=== PATIENT | male | born 1960 | race Caucasian/White ===

== ENCOUNTER 2017-04-14 17:42 | Emergency (ER) | payer OTHER ==
[2017-04-14 17:49] VITALS: BP 159/93; BMI 58.3
[2017-04-14] MEDS ORDERED: ASPIRIN ONE (18:39)
--- NOTE | 2017-04-14 18:44 | DR.CP ---
HPI - Time Seen Time seen: 18:00 - PCP Primary Care Physician: Jeff - HPI Comment HPI Comment: Pt c/o 2 week h/o left sided chest pain with nausea, diaphoresis, and SOB. Chest pain radiates to L shoulder and down his Left arm.A cardiac cath in 08/2016 revealed normal coronary arteries. He has been taking his BP meds in the evening and has been religiously taking his Percocet 10, 4 times daily. - Complaint Chief Complaint Doctor Comments: Chest pain Chief Complaint:: chest pain blurred vision headache Self Treatment fo Chief Complaint: none - Reviewed Nurses Notes Review: Yes - Source History Provided: Patient - Mode of Arrival Mode of Arrival: Ambulatory - Timing Onset of Chief Complaint: 04/07/17 Came on: Gradually Pain: Present Now - Duration Duration: Intermittent How lon Duration: Weeks - Location Location of Chest Pain: Left, Chest Chest Pain Radiation Location: Left Arm, Left Shoulder - Context Onset: At rest, With light exertion, With heavy exertion Cardiac Risk Factors: HTN, Other (morbid obesity) History of: Similar pain in the past, Angina Prehospital Care: None - Quality Quality: Squeezing, Pressure like - Severity Severity: Severe (10/10) - Modifying Factors Worsens: Exertion, Movement Impoves: Nothing, Rest - Associated Signs and Symptoms Associated Signs and Symptoms: Shortness of Breath, Diaphoresis, Nausea/Vomiting PMH - PMH Past Medical History: Yes Past Medical History: Anxiety, Diabetes, Dyslipidemia, Hypertension, Kidney Stones, Sleep Apnea Past Surgical History: Yes Surgical History: Ortho Surgery, Lithotripsy Past Surgical History Comment: bladder canver removal , knee surgery - Family History History of Family Medical Conditions: No (unsure) - Social History Does patient currently use any type of tobacco product: No Have you used tobacco products in the last 12 months: No Type of Tobacco Use: None Does any household member use tobacco: No Alcohol Use: None Do you use any recreational Drugs:: No Lives With: Family, Significant Other Lives Where: Home - infectious screening In the last 2 months have you had wt loss of >10#?: NO Have you had fever, night sweats or hemotysis?: No Have you traveled outside the country in the last 6 months?: No Isolation: Standard ROS - Review of Systems Constitutional: No Symptoms Reported Eyes: Blurred Vision ENTM: No Symptoms Reported Respiratoy: Short of Breath Cardiovascular: Chest Pain Gastrointestinal/Abdominal: No Symptoms Reported Genitourinary: No Symptoms Reported Neurological: Numbness, Tingling Musculoskeletal: See HPI, Left, Shoulder, Arm Integumentary: No Symptoms Reported Hematologic/Lymphatic: No Symptoms Reported Endocrine: No Symptoms Reported Psychiatric: No Symptoms Reported All Other Systems: Reviewed and Negative PE - Vitals Vitals: Pulse Rate 87 Respiratory Rate 22 Blood Pressure [Left Arm] 141/86 Blood Pressure 159/93 O2 Sat by Pulse Oximetry 95 - General Limitations: No Limitations General Appearance: Alert, In No Apparent Distress - Head Head Exam: Normal Inspection - Eyes Eye exam: Normal Appearance, PERRL, EOMI - ENT ENT Exam: Normal Exam, Normal Oropharynx - Chest Chest Inspection: Normal Inspection, Symmetric Chest Wall Rise - Respiratory Respiratory Exam: Bilateral Clear to Auscultation - Cardiovascular Cardiovascular Exam: Regular Rate, Normal Rhythm, Normal Heart Sounds Pulse: Normal Edema: Normal - Abdominal Exam Abdominal Exam: Normal Inspection, Normal Bowel Sounds, Soft - Extremities Extremities Exam: Normal Inspection - Back Back Exam: Normal Inspection - Neurologic Neurological Exam: Alert, Oriented X3, CN II-XII Intact - Psychiatric Psychiatric Exam: Normal Affect, Normal Mood - Skin Skin Exam: Warm, Dry, Intact, Normal Color MDM - Differential Diagnosis Differential Diagnosis: Angina, Chest Wall Pain, Costochondritis, Gastritis, Myocardial Infarction ROR - Labs Reviewed Laboratory Results Reviewed?: Yes Result Diagrams: 04/14/17 18:36 04/14/17 18:36 Laboratory: WBC 8.2 X10^3/uL (3.6-10.0) 04/14/17 18:36 RBC 5.26 X10^6/uL (4.7-6.0) 04/14/17 18:36 Hgb 14.5 g/dL (13.5-18.0) 04/14/17 18:36 Hct 43.3 % (42.0-54.0) 04/14/17 18:36 MCV 82.5 fL (80.0-100.0) 04/14/17 18:36 MCH 27.5 pg (27.0-34.0) 04/14/17 18:36 MCHC 33.4 g/dL (33.0-35.0) 04/14/17 18:36 RDW 15.3 % (11.6-16.5) 04/14/17 18:36 Plt Count 252 X10^3/uL (150.0-450.0) 04/14/17 18:36 MPV 7.5 fL (7.4-11.0) 04/14/17 18:36 Neut % 63.6 % (42.0-75.0) 04/14/17 18:36 Lymph % 24.0 % (21.0-51.0) 04/14/17 18:36 [place] % 6.9 % (0.0-13.0) 04/14/17 18:36 Eos % 4.9 % (0.9-2.9) H 04/14/17 18:36 Baso % 0.6 % (0.2-1.0) 04/14/17 18:36 Neut # 5.2 x10^3/uL (2.2-4.8) H 04/14/17 18:36 Lymph # 2.0 X10^3/uL (1.3-2.9) 04/14/17 18:36 [place] # 0.6 x10^3/uL (0.3-0.8) 04/14/17 18:36 Eos # 0.4 x10^3/uL (0.0-0.2) H 04/14/17 18:36 Baso # 0.1 X10^3/uL (0.0-0.1) 04/14/17 18:36 Absolute Nucleated RBC 0.0 /100WBC 04/14/17 18:36 Sodium 137 mmol/L (136-145) 04/14/17 18:36 Corrected Sodium 144 mmol/L (136-145) 04/14/17 18:36 Potassium 4.3 mmol/L (3.5-5.1) 04/14/17 18:36 Chloride 101 mmol/L (98-107) 04/14/17 18:36 Carbon Dioxide 24.9 mmol/L (21-32) 04/14/17 18:36 BUN 15 mg/dL (7-18) 04/14/17 18:36 Creatinine 1.14 mg/dL (0.70-1.30) 04/14/17 18:36 Est GFR (MDRD) Af Amer > 60 (>60) 04/14/17 18:36 Est GFR (MDRD) Non-Af > 60 (>60) 04/14/17 18:36 Glucose 391 mg/dL (65-99) H 04/14/17 18:36 Calcium 8.9 mg/dL (8.5-10.1) 04/14/17 18:36 Corrected Calcium TNP 04/14/17 18:36 Total Bilirubin 0.50 mg/dL (0.2-1.0) 04/14/17 18:36 AST 18 Units/L (15-37) 04/14/17 18:36 ALT 36 Units/L (12-78) 04/14/17 18:36 Alkaline Phosphatase 48 Units/L (46-116) 04/14/17 18:36 Creatine Kinase 63 Units/L (39-308) 04/14/17 18:36 CK-MB (CK-2) < 1.0 ng/mL (0-4.0) 04/14/17 18:36 CK/CKMB % Calc 1.6 % (<4) 04/14/17 18:36 Troponin I < 0.02 ng/mL (0-1.5) 04/14/17 18:36 B-Natriuretic Peptide 35.1 pg/mL (0-79) 04/14/17 18:36 Total Protein 8.0 g/dL (6.4-8.2) 04/14/17 18:36 Albumin 3.6 g/dL (3.4-5.0) 04/14/17 18:36 Globulin 4.4 g/dL (2.5-4.5) 04/14/17 18:36 Albumin/Globulin Ratio 0.8 Ratio (1.1-2.1) L 04/14/17 18:36 H. pylori IgG Antibody Positive (NEGATIVE) A 04/14/17 18:36 - Diagnosis Discharge Problem: Chest pain - Discharge Plan Condition: Stable Prescriptions: Lansoprazole/Amoxiciln/Clarith [PrevPac 14-day pack] 1 dose PO BID #1 pkg - Follow ups/Referrals Follow ups/Referrals: David Aguilar [Primary Care Provider] - 3 days - Instructions Instructions: Acute Coronary Syndrome
[2017-04-14] MEDS: NITROSTAT SL PRN ×2 (18:45→18:50)
[2017-04-14 19:09] LABS: BASOPHILS # (AUTO) 0.1 X10^3/uL (0.0-0.1); BASOPHILS % (AUTO) 0.6 % (0.2-1.0); CKMB % 1.6 % (<4); CREATINE KINASE 63 Units/L (39-308); CREATINE KINASE MB < 1.0 ng/mL (0-4.0); EOSINOPHILS # (AUTO) 0.4 x10^3/uL (0.0-0.2); EOSINOPHILS % (AUTO) 4.9 % (0.9-2.9); HEMATOCRIT 43.3 % (42.0-54.0); HEMOGLOBIN 14.5 g/dL (13.5-18.0); MEAN CORPUSCULAR HEMOGLOBIN 27.5 pg (27.0-34.0); MEAN CORPUSCULAR HGB CONC 33.4 g/dL (33.0-35.0); MEAN CORPUSCULAR VOLUME 82.5 fL (80.0-100.0); MEAN PLATELET VOLUME 7.5 fL (7.4-11.0); MONOCYTES # (AUTO) 0.6 x10^3/uL (0.3-0.8); MONOCYTES % (AUTO) 6.9 % (0.0-13.0); NEUTROPHILS # (AUTO) 5.2 x10^3/uL (2.2-4.8); NEUTROPHILS % (AUTO) 63.6 % (42.0-75.0); PLATELET COUNT 252 X10^3/uL (150.0-450.0); RED BLOOD COUNT 5.26 X10^6/uL (4.7-6.0); RED CELL DISTRIBUTION WIDTH 15.3 % (11.6-16.5); TROPONIN I < 0.02 ng/mL (0-1.5); WHITE BLOOD COUNT 8.2 X10^3/uL (3.6-10.0)
[2017-04-14 19:21] LABS: ALANINE AMINOTRANSFERASE 36 Units/L (12-78); ALBUMIN 3.6 g/dL (3.4-5.0); ALKALINE PHOSPHATASE 48 Units/L (46-116); ASPARTATE AMINO TRANSFERASE 18 Units/L (15-37); BLOOD UREA NITROGEN 15 mg/dL (7-18); CALCIUM 8.9 mg/dL (8.5-10.1); CARBON DIOXIDE 24.9 mmol/L (21-32); CHLORIDE 101 mmol/L (98-107); COR NA(FOR HYPERGLY) 144 mmol/L (136-145); CREATININE 1.14 mg/dL (0.70-1.30); GLUCOSE 391 mg/dL (65-99); SODIUM 137 mmol/L (136-145); eGFR BLACK RACES > 60 (>60); eGFR NON BLACK RACES > 60 (>60)
[2017-04-14 19:33] LABS: B-TYPE NATRIURETIC PEPTIDE 35.1 pg/mL (0-79)
--- NOTE | 2017-04-14 20:06 | RAD ---
HISTORY: Chest pain Study: Single view chest. Comparison: None. Findings: The trachea is midline. The cardiomediastinal silhouette is enlarged. The lungs are clear without f ocal infiltrate or effusion. The bony thorax is unremarkable. IMPRESSION: 1. Enlarged cardiomediastinal silhouette and widened superior mediastinum which can be seen with acu te aortic pathology. Please correlate with CTA imaging for assurance. Reported By:
[2017-04-14] MEDS ORDERED: NS 100 ML IV 100 ML IV ONE (21:02)
--- NOTE | 2017-04-14 22:10 | CT ---
CT angiogram chest with and without contrast CT abdomen with and without contrast Indication: Possible aortic dissection. Widened mediastinum on chest radiography. Chest pain. Technique: Helical images through the chest and abdomen be for and after IV contrast per protocol. Co viraj and sagittal reformats provided. MIP imaging of the aorta performed. Findings: Review of bone windows shows partially visualize pars defects at L5. Spine degenerative change presen t. Noncontrast imaging shows a few calcified plaques of the aortic arch and left anterior descending Cor onary artery. There is mild right perinephric stranding and dilatation of the right renal pelvis. Chest: Postcontrast imaging shows no aortic arch dissection or aneurysm. Aortic arch branch vessels a re patent. Pulmonary artery size is normal. Heart size is upper limits of normal. There is no pneumot horax, effusion or consolidation. There is no mediastinal abnormality seen. Abdomen: The liver is fatty and enlarged. The gallbladder, spleen, adrenal glands and pancreas are no rmal. Visualized loops of bowel show no acute abnormality. The left kidney is normal. The right kidne y shows perinephric stranding in dilated right renal pelvis, without convincing obstructing stone. Impression: 1. No evidence of aortic aneurysm. Minimal vascular calcifications. 2. No acute chest process. 3. Prominent right renal pelvis and perinephric stranding. This could represent a prominent extrarena l pelvis but correlate clinically for signs of urinary tract infection. Underlying ureteropelvic junc tion stricture is possible. The proximal right ureter is normal where visualized otherwise. Reported By:
[2017-04-15] MEDS ORDERED: ASPIRIN PO ONE (18:45)
== END 2017-04-14 23:10 | disposition home or self-care (01) ==
LOC: ER 17:57
DX: R07.89 Other chest pain (principal); R06.02 Shortness of breath
CPT/HCPCS: 36415; 71010; 71275; 80053; 82550; 82553; 83880; 84484; 85025; 86677; 93005; 96365; 99283; A4216; A4222

== ENCOUNTER 2017-07-09 09:02 | Emergency (ER) | payer OTHER ==
[2017-07-09 09:07] VITALS: BMI 57.9
--- NOTE | 2017-07-09 09:24 | DR.HEADACH ---
HPI - Primary Care Physician Primary Care Physician: JUANI MARTÍNEZ - Complaint/Symptoms Chief Complaint:: PT C/O [place], AND DIZZY FOR THE PAST FEW WEEKS PT DID NOT TAKE HIS HOME MEDS THIS AM AND HE STATES HE WAS SUPPOSED TO HAVE A CT ON TUESDAY AND HE COULD NOT COME ... Pertinent History: Headache Self Treatment fo Chief Complaint: PT STATES " I THINK I NEED MORE 02 MAYBE DURING THE DAY OR ITS MY B/P AND MY HEAD IS FULL AND IT FEELS LIKE MY HEAD IS GOING TO BLOW OFF .. - Source History Provided: Patient - Mode of Arrival Mode of Arrival: Ambulatory - Timing Onset of Chief Complaint: 06/22/17 - Duration Since Onset: Constant - Location Headache Location: Generalized - Quality Quality: Throbbing - Severity Headache Severity: Worst Headache of Life - Context Headache Onset Circumstances: Spontaneous History of: Hypertension - Modifying Factors Improves With: Nothing Worsens: Nothing - Associated Signs and Symptoms Associated Symptoms: Nausea Aura: denies: Visual, Sensory, Motor, Mood PMH - PMH Past Medical History: Yes Past Medical History: Anxiety, Diabetes, Dyslipidemia, Hypertension, Kidney Stones, Sleep Apnea Past Medical History Comment: BLADDER CANCER .. 2016 Past Surgical History: No Surgical History: Ortho Surgery, Lithotripsy - Family History History of Family Medical Conditions: No - Social History Does patient currently use any type of tobacco product: No Have you used tobacco products in the last 12 months: No Type of Tobacco Use: None Does any household member use tobacco: No Alcohol Use: None Do you use any recreational Drugs:: No Lives With: Family Lives Where: Home - infectious screening In the last 2 months have you had wt loss of >10#?: NO Have you had fever, night sweats or hemotysis?: No Have you traveled outside the country in the last 6 months?: No Isolation: Standard ROS - Review of Systems Constitutional: Weakness, Fatigue. negative: Chills, Fever Eyes: No Symptoms Reported ENTM: No Symptoms Reported Respiratoy: No Symptoms Reported Cardiovascular: No Symptoms Reported Gastrointestinal/Abdominal: Abdominal Pain, Diarrhea, Nausea Genitourinary: No Symptoms Reported Neurological: Headache, Weakness, Dizziness Musculoskeletal: No Symptoms Reported Integumentary: No Symptoms Reported Hematologic/Lymphatic: No Symptoms Reported Endocrine: No Symptoms Reported All Other Systems: Reviewed and Negative PE - Vital Signs Vitals: Temperature 97.3 F Pulse Rate [Left Brachial] 76 Pulse Rate 95 Respiratory Rate 20 Blood Pressure [Left Arm] 148/71 Blood Pressure 166/103 O2 Sat by Pulse Oximetry 95 - General Limitations: No Limitations General Appearance: Alert - Head Head Exam: Normal Inspection - Eyes Eye exam: Normal Appearance Eyelids: Normal Inspection: Bilateral Pupils: Regular, Round: Bilateral, Reactive: Bilateral - ENT ENT Exam: Normal Exam External Ear Exam: Normal External Inspection TM/Canal Exam: Bilateral Normal Nose Exam: Normal Nose Exam Mouth Exam: Normal Inspection Teeth Exam: Normal Inspection Throat Exam: Normal Inspection - Neck Neck Exam: Trachea Midline - Chest Chest Inspection: Symmetric Chest Wall Rise - Respiratory Respiratory Exam: Normal Lung Sounds Bilat Respiratory Exam: Bilateral Clear to Auscultation - Cardiovascular Cardiovascular Exam: Regular Rate, Normal Rhythm, Normal Heart Sounds - Abdominal Exam Abdominal Exam: Normal Bowel Sounds, Soft. negative: Tenderness - Extremities Extremities Exam: Normal Inspection - Back Back Exam: Normal Inspection - Neurologic Neurological Exam: Alert, Oriented X3, CN II-XII Intact, Normal Gait, Reflexes Normal. negative: Motor Sensory Deficit - Psychiatric Psychiatric Exam: Normal Affect, Normal Mood - Skin Skin Exam: Normal Color ROR - Labs Reviewed Result Diagrams: 07/09/17 09:40 07/09/17 09:40 Laboratory: WBC 7.4 X10^3/uL (3.6-10.0) 07/09/17 09:40 RBC 5.28 X10^6/uL (4.7-6.0) 07/09/17 09:40 Hgb 14.4 g/dL (13.5-18.0) 07/09/17 09:40 Hct 42.7 % (42.0-54.0) 07/09/17 09:40 MCV 80.9 fL (80.0-100.0) 07/09/17 09:40 MCH 27.2 pg (27.0-34.0) 07/09/17 09:40 MCHC 33.6 g/dL (33.0-35.0) 07/09/17 09:40 RDW 14.7 % (11.6-16.5) 07/09/17 09:40 Plt Count 279 X10^3/uL (150.0-450.0) 07/09/17 09:40 MPV 7.4 fL (7.4-11.0) 07/09/17 09:40 Neut % 63.5 % (42.0-75.0) 07/09/17 09:40 Lymph % 25.5 % (21.0-51.0) 07/09/17 09:40 [place] % 6.7 % (0.0-13.0) 07/09/17 09:40 Eos % 3.6 % (0.9-2.9) H 07/09/17 09:40 Baso % 0.7 % (0.2-1.0) 07/09/17 09:40 Neut # 4.7 x10^3/uL (2.2-4.8) 07/09/17 09:40 Lymph # 1.9 X10^3/uL (1.3-2.9) 07/09/17 09:40 [place] # 0.5 x10^3/uL (0.3-0.8) 07/09/17 09:40 Eos # 0.3 x10^3/uL (0.0-0.2) H 07/09/17 09:40 Baso # 0.1 X10^3/uL (0.0-0.1) 07/09/17 09:40 Absolute Nucleated RBC 0.1 /100WBC 07/09/17 09:40 INR Target Range - 07/09/17 09:40 INR 0.92 (0.8-1.3) 07/09/17 09:40 PTT 26.2 SECONDS (22.9-36.5) 07/09/17 09:40 PTT Comment - 07/09/17 09:40 Sodium 138 mmol/L (136-145) 07/09/17 09:40 Corrected Sodium 143 mmol/L (136-145) 07/09/17 09:40 Potassium 3.8 mmol/L (3.5-5.1) 07/09/17 09:40 Chloride 103 mmol/L (98-107) 07/09/17 09:40 Carbon Dioxide 23.9 mmol/L (21-32) 07/09/17 09:40 BUN 14 mg/dL (7-18) 07/09/17 09:40 Creatinine 1.06 mg/dL (0.70-1.30) 07/09/17 09:40 Est GFR (MDRD) Af Amer > 60 (>60) 07/09/17 09:40 Est GFR (MDRD) Non-Af > 60 (>60) 07/09/17 09:40 Glucose 290 mg/dL (65-99) H 07/09/17 09:40 Calcium 8.7 mg/dL (8.5-10.1) 07/09/17 09:40 Corrected Calcium 9.3 mg/dL (8.5-10.1) 07/09/17 09:40 Total Bilirubin 0.50 mg/dL (0.2-1.0) 07/09/17 09:40 AST 10 Units/L (15-37) L 07/09/17 09:40 ALT 21 Units/L (12-78) 07/09/17 09:40 Alkaline Phosphatase 62 Units/L (46-116) 07/09/17 09:40 Creatine Kinase 48 Units/L (39-308) 07/09/17 09:40 CK-MB (CK-2) < 1.0 ng/mL (0-4.0) 07/09/17 09:40 CK/CKMB % Calc 2.1 % (<4) 07/09/17 09:40 Troponin I < 0.02 ng/mL (0-1.5) 07/09/17 09:40 Total Protein 7.3 g/dL (6.4-8.2) 07/09/17 09:40 Albumin 3.3 g/dL (3.4-5.0) L 07/09/17 09:40 Globulin 4.0 g/dL (2.5-4.5) 07/09/17 09:40 Albumin/Globulin Ratio 0.8 Ratio (1.1-2.1) L 07/09/17 09:40 - Diagnosis Discharge Problem: Hypertension, Headache - Discharge Plan Disposition: 01 HOME, SELF-CARE Condition: Stable Prescriptions: [id number] [Fioricet Tab] 1 tab PO Q8H PRN #30 tab PRN Reason: Migraine Headache Metoprolol Succinate [Toprol Xl] 25 mg PO BID #60 tab - Follow ups/Referrals Follow ups/Referrals: JUANI MARTÍNEZ [Primary Care Provider] - 07/11/17 - Instructions Instructions: Migraine Headache, [id number], Premature Ventricular Contraction, Hypertension, [id number] Additional Instructions: RETURN TO ED IF WORSE. CHECK BP DAILY AND TAKE TP PCP.
[2017-07-09] MEDS ORDERED: TORADOL 60 MG VIAL IM ONE (09:32)
[2017-07-09] MEDS ORDERED: TORADOL 60 MG VIAL ONE (09:37)
[2017-07-09] MEDS ORDERED: ZESTRIL TAB 20 MG ONE (09:39)
--- NOTE | 2017-07-09 09:48 | RAD ---
Examination: Portable AP chest History: Headache and dizzy, bladder CA Comparison reference: 04/14/2017 Findings: Stable cardiomegaly with mild central vascular distention. There is no localized consolidat ion, pulmonary edema or large pleural effusion. There is widening of the upper mediastinum, unchanged . Impression: Stable cardiac enlargement and pulmonary vascular congestion. Widened mediastinum has bee n previously noted; chest CT examination of 04/14/2017 excluded aortic aneurysm and dissection. Reported By:
[2017-07-09 09:53] LABS: BASOPHILS # (AUTO) 0.1 X10^3/uL (0.0-0.1); BASOPHILS % (AUTO) 0.7 % (0.2-1.0); EOSINOPHILS # (AUTO) 0.3 x10^3/uL (0.0-0.2); EOSINOPHILS % (AUTO) 3.6 % (0.9-2.9); HEMATOCRIT 42.7 % (42.0-54.0); HEMOGLOBIN 14.4 g/dL (13.5-18.0); LYMPHOCYTES # (AUTO) 1.9 X10^3/uL (1.3-2.9); LYMPHOCYTES % (AUTO) 25.5 % (21.0-51.0); MEAN CORPUSCULAR HEMOGLOBIN 27.2 pg (27.0-34.0); MEAN CORPUSCULAR HGB CONC 33.6 g/dL (33.0-35.0); MEAN CORPUSCULAR VOLUME 80.9 fL (80.0-100.0); MEAN PLATELET VOLUME 7.4 fL (7.4-11.0); MONOCYTES # (AUTO) 0.5 x10^3/uL (0.3-0.8); MONOCYTES % (AUTO) 6.7 % (0.0-13.0); NEUTROPHILS # (AUTO) 4.7 x10^3/uL (2.2-4.8); NEUTROPHILS % (AUTO) 63.5 % (42.0-75.0); PLATELET COUNT 279 X10^3/uL (150.0-450.0); RED BLOOD COUNT 5.28 X10^6/uL (4.7-6.0); RED CELL DISTRIBUTION WIDTH 14.7 % (11.6-16.5); WHITE BLOOD COUNT 7.4 X10^3/uL (3.6-10.0)
[2017-07-09] MEDS ORDERED: ZESTRIL TAB 20 MG PO SCH (10:00)
--- NOTE | 2017-07-09 10:18 | CT ---
CT HEAD WITHOUT CONTRAST CLINICAL HISTORY: 56-year-old male with headache and dizziness for several weeks. COMPARISON: None. TECHNIQUE: Multiple, non-contrasted axial CT images were obtained from the skull base to the cranial vertex. Coronal and sagittal reformats were performed. FINDINGS: There are no abnormal intra- or extra-axial fluid collections, midline shift, or mass effec t. Martinez-white differentiation is normal. Partially empty sella. Global cortical involutional changes are present that are advanced for the patient's stated age. The ventricular system is mildly enlarged but commensurate with the degree of sulcal prominence. Periventricular and supraventricular white ma tter hypodensity is present that is nonspecific in appearance, but most likely to represent microvasc ular ischemic changes. Atherosclerotic vascular calcification is present within the carotid siphons a nd distal vertebral arteries. The imaged paranasal sinuses, mastoid air cells, and tympanic spaces are clear. IMPRESSION: 1. No definite evidence of an acute intracranial process. If clinical concern persists, consider MRI/ MRA brain. 2. Moderate microvascular white matter ischemic changes, with associated volume loss. Reported By:
[2017-07-09 10:22] LABS: BLOOD UREA NITROGEN 14 mg/dL (7-18); CALCIUM 8.7 mg/dL (8.5-10.1); CARBON DIOXIDE 23.9 mmol/L (21-32); CHLORIDE 103 mmol/L (98-107); COR NA(FOR HYPERGLY) 143 mmol/L (136-145); CREATININE 1.06 mg/dL (0.70-1.30); SODIUM 138 mmol/L (136-145); TROPONIN I < 0.02 ng/mL (0-1.5); eGFR BLACK RACES > 60 (>60); eGFR NON BLACK RACES > 60 (>60)
[2017-07-09 10:25] LABS: ALANINE AMINOTRANSFERASE 21 Units/L (12-78); ALBUMIN 3.3 g/dL (3.4-5.0); ALKALINE PHOSPHATASE 62 Units/L (46-116); ASPARTATE AMINO TRANSFERASE 10 Units/L (15-37); COR CA(FOR HYPOALB) 9.3 mg/dL (8.5-10.1); CREATINE KINASE 48 Units/L (39-308); CREATINE KINASE MB < 1.0 ng/mL (0-4.0); TOTAL PROTEIN 7.3 g/dL (6.4-8.2)
[2017-07-09 10:27] LABS: CKMB % 2.1 % (<4)
[2017-07-09 10:46] VITALS: BP 148/71
[2017-07-09] MEDS ORDERED: LOPRESSOR TAB 25 MG PO ONE (14:41)
[2017-07-09] MEDS ORDERED: LOPRESSOR TAB 50 MG ONE (14:54)
== END 2017-07-09 15:01 | disposition home or self-care (01) ==
LOC: ER 09:12
DX: R51 Headache (principal); I10 Essential (primary) hypertension
CPT/HCPCS: 36415; 70450; 71010; 80053; 82550; 82553; 84484; 85025; 85610; 85730; 93005; 93010; 96372; 99283; J1885

== ENCOUNTER → 2017-09-07 | Outpatient (CLI) | payer OTHER ==
--- NOTE | 2017-09-07 11:40 | MRI ---
MRA OF THE BRAIN WITHOUT IV CONTRAST HISTORY: Headache Comparison: CT 07/09/2017 Technique: 3-D [id number] imaging of the intracranial circulation was performed. Findings: The anterior circulation demonstrates normal anatomic findings. The internal carotid artery, M1 segm ent, and A1 segments do not demonstrates atherosclerotic changes. No aneurysmal changes or evidence for vascular malformation can be identified. The posterior circulation demonstrates a posterior comm unicating artery on the right and left. The basal vertebral system is normal in its appearance. IMPRESSION: 1. Unremarkable MRA of the brain. Reported By:
== END ==
LOC: RAD 09:55
PROVIDERS: ATTEND Nurse Practitioner
DX: G44.201 Tension-type headache, unspecified, intractable (principal); R42 Dizziness and giddiness
CPT/HCPCS: 70544

== ENCOUNTER 2018-01-15 10:19 | Emergency (ER) | payer OTHER ==
[2018-01-15 10:36] VITALS: BMI 59.5
[2018-01-15] MEDS ORDERED: ASPIRIN ONE (10:36)
--- NOTE | 2018-01-15 10:40 | DR.GENAD ---
HPI - PCP Primary Care Physician: jackie - Complaint/Symptoms Chief Complaint Doctors Comments: patient presents with complaint of left chest pain for three months. Pain is worse today.He admits to radiating pain to left extremity, positive diaphoresis. Chief Complaint:: CHest pain times two days - Source History Provided: Patient - Mode of Arrival Mode of Arrival: Ambulatory - Timing Onset of Chief Complaint: 01/13/18 PMH - PMH Past Medical History: Yes Past Medical History: Anxiety, Diabetes, Dyslipidemia, Hypertension, Kidney Stones, Sleep Apnea Past Medical History Comment: cancer bladder Past Surgical History: Yes Surgical History: Ortho Surgery, Lithotripsy - Family History History of Family Medical Conditions: No - Social History Does patient currently use any type of tobacco product: No Have you used tobacco products in the last 12 months: No Type of Tobacco Use: None Does any household member use tobacco: No Alcohol Use: None Do you use any recreational Drugs:: No Lives With: Family Lives Where: Home - infectious screening In the last 2 months have you had wt loss of >10#?: NO Have you had fever, night sweats or hemotysis?: No Have you traveled outside the country in the last 6 months?: No Isolation: Standard ROS - Review of Systems Eyes: No Symptoms Reported ENTM: No Symptoms Reported Respiratoy: No Symptoms Reported Cardiovascular: No Symptoms Reported Gastrointestinal/Abdominal: No Symptoms Reported Genitourinary: No Symptoms Reported Neurological: No Symptoms Reported Musculoskeletal: No Symptoms Reported Integumentary: No Symptoms Reported Hematologic/Lymphatic: No Symptoms Reported Endocrine: No Symptoms Reported Psychiatric: No Symptoms Reported All Other Systems: Reviewed and Negative PE - Vital Signs Vitals: Temperature 97.8 F Pulse Rate [Right Brachial] 80 Pulse Rate 60 Respiratory Rate 18 Blood Pressure [Left Arm] 167/80 Blood Pressure 186/102 O2 Sat by Pulse Oximetry 97 - General Limitations: No Limitations General Appearance: Alert, In No Apparent Distress - Head Head Exam: Normal Inspection, Atraumatic - Eyes Eye exam: Normal Appearance, PERRL, EOMI - ENT ENT Exam: Normal Exam External Ear Exam: Normal External Inspection TM/Canal Exam: Bilateral Normal Nose Exam: Normal Nose Exam Mouth Exam: Normal Inspection Throat Exam: Normal Inspection - Neck Neck Exam: Normal Inspection - Chest Chest Inspection: Normal Inspection - Respiratory Respiratory Exam: Normal Lung Sounds Bilat, Accessory Muscle Use Respiratory Exam: Bilateral Clear to Auscultation - Cardiovascular Cardiovascular Exam: Regular Rate, Normal Rhythm - Abdominal Exam Abdominal Exam: Normal Inspection, Normal Bowel Sounds Abdominal Tenderness: negative: RUQ, RLQ, LUQ, LLQ, Epigastrium, Suprapubic, Diffuse, Mild, Moderate, Severe, Other - Extremities Extremities Exam: Normal Inspection - Back Back Exam: Normal Inspection - Neurologic Neurological Exam: Alert, Oriented X3, CN II-XII Intact - Psychiatric Psychiatric Exam: Normal Affect - Skin Skin Exam: Warm, Dry, Intact Course - Reevaluation 1st: Improved - Consultation Called: 13:30 (Dr Peterson agreed to admit for chest pain protocol) ROR - Labs Reviewed Result Diagrams: 01/15/18 11:33 01/15/18 11:33 Laboratory: WBC 9.3 X10^3/uL (3.6-10.0) 01/15/18 11:33 RBC 5.60 X10^6/uL (4.7-6.0) 01/15/18 11:33 Hgb 15.4 g/dL (13.5-18.0) 01/15/18 11:33 Hct 46.0 % (42.0-54.0) 01/15/18 11:33 MCV 82.1 fL (80.0-100.0) 01/15/18 11:33 MCH 27.5 pg (27.0-34.0) 01/15/18 11:33 MCHC 33.5 g/dL (33.0-35.0) 01/15/18 11:33 RDW 15.4 % (11.6-16.5) 01/15/18 11:33 Plt Count 273 X10^3/uL (150.0-450.0) 01/15/18 11:33 MPV 7.4 fL (7.4-11.0) 01/15/18 11:33 Neut % (Auto) 66.9 % (42.0-75.0) 01/15/18 11:33 Lymph % (Auto) 21.9 % (21.0-51.0) 01/15/18 11:33 [place] % (Auto) 6.1 % (0.0-13.0) 01/15/18 11:33 Eos % (Auto) 4.0 % (0.9-2.9) H 01/15/18 11:33 Baso % (Auto) 1.1 % (0.2-1.0) H 01/15/18 11:33 Neut # (Auto) 6.2 x10^3/uL (2.2-4.8) H 01/15/18 11:33 Lymph # (Auto) 2.0 X10^3/uL (1.3-2.9) 01/15/18 11:33 [place] # (Auto) 0.6 x10^3/uL (0.3-0.8) 01/15/18 11:33 Eos # (Auto) 0.4 x10^3/uL (0.0-0.2) H 01/15/18 11:33 Baso # (Auto) 0.1 X10^3/uL (0.0-0.1) 01/15/18 11:33 Absolute Nucleated RBC 0.1 /100WBC 01/15/18 11:33 INR Target Range - 01/15/18 11:33 INR 1.00 (0.8-1.3) 01/15/18 11:33 APTT 28.3 SECONDS (22.9-36.5) 01/15/18 11:33 PTT Comment - 01/15/18 11:33 Sodium 135 mmol/L (136-145) L 01/15/18 11:33 Corrected Sodium 137 mmol/L (136-145) 01/15/18 11:33 Potassium 4.2 mmol/L (3.5-5.1) 01/15/18 11:33 Chloride 99 mmol/L (98-107) 01/15/18 11:33 Carbon Dioxide 28.4 mmol/L (21-32) 01/15/18 11:33 BUN 7 mg/dL (7-18) 01/15/18 11:33 Creatinine 0.86 mg/dL (0.70-1.30) 01/15/18 11:33 Est GFR (MDRD) Af Amer > 60 (>60) 01/15/18 11:33 Est GFR (MDRD) Non-Af > 60 (>60) 01/15/18 11:33 Glucose 176 mg/dL (65-99) H 01/15/18 11:33 Calcium 8.2 mg/dL (8.5-10.1) L 01/15/18 11:33 Corrected Calcium TNP 01/15/18 11:33 Magnesium 2.0 mg/dL (1.7-2.9) 01/15/18 11:33 Total Bilirubin 0.80 mg/dL (0.2-1.0) 01/15/18 11:33 AST 14 Units/L (15-37) L 01/15/18 11:33 ALT 18 Units/L (12-78) 01/15/18 11:33 Alkaline Phosphatase 39 Units/L (46-116) L 01/15/18 11:33 Creatine Kinase 63 Units/L (39-308) 01/15/18 11:33 CK-MB (CK-2) < 1.0 ng/mL (0-4.0) 01/15/18 11:33 CK/CKMB % Calc 1.6 % (<4) 01/15/18 11:33 Troponin I < 0.02 ng/mL (0-1.5) 01/15/18 11:33 Total Protein 7.9 g/dL (6.4-8.2) 01/15/18 11:33 Albumin 3.8 g/dL (3.4-5.0) 01/15/18 11:33 Globulin 4.1 g/dL (2.5-4.5) 01/15/18 11:33 Albumin/Globulin Ratio 0.9 Ratio (1.1-2.1) L 01/15/18 11:33 - XRAY XRAY Interpreted by: Radiologist (Chest: Continued mild cardiomegaly with clear lungs. Moderate widening of superior mediastinum is unchanged compared to 07/09. There is no evidence for pneumonia, pulmonary edema or pneumothorax.) - Diagnosis Discharge Problem: Chronic left shoulder pain Chest pain Qualifiers: Chest pain type: unspecified Qualified Code(s): R07.9 - Chest pain, unspecified - Discharge Plan Condition: Stable - Follow ups/Referrals Follow ups/Referrals: David Aguilar [Primary Care Provider] - 3 days - Instructions
[2018-01-15] MEDS ORDERED: NITROSTAT SL PRN (10:49)
[2018-01-15] MEDS: ASPIRIN PO SCH (10:49)
[2018-01-15] MEDS ORDERED: MORPHINE SULFATE INJ 4 MG IVP ONE (10:57)
[2018-01-15] MEDS ORDERED: MORPHINE SULFATE INJ 4 MG ONE (10:59)
--- NOTE | 2018-01-15 12:04 | RAD ---
Examination: AP chest History: Chest pain and pain in left arm Comparison reference 07/09/2017 Findings: Continued mild cardiomegaly with clear lungs. Moderate widening of superior mediastinum is unchanged. There is no evidence for pneumonia, pulmonary edema or pneumothorax. Impression: No interval change or acute findings. Reported By:
[2018-01-15 12:35] LABS: BASOPHILS # (AUTO) 0.1 X10^3/uL (0.0-0.1); BASOPHILS % (AUTO) 1.1 % (0.2-1.0); EOSINOPHILS # (AUTO) 0.4 x10^3/uL (0.0-0.2); HEMOGLOBIN 15.4 g/dL (13.5-18.0); LYMPHOCYTES % (AUTO) 21.9 % (21.0-51.0); MEAN CORPUSCULAR HEMOGLOBIN 27.5 pg (27.0-34.0); MEAN CORPUSCULAR HGB CONC 33.5 g/dL (33.0-35.0); MEAN CORPUSCULAR VOLUME 82.1 fL (80.0-100.0); MEAN PLATELET VOLUME 7.4 fL (7.4-11.0); MONOCYTES # (AUTO) 0.6 x10^3/uL (0.3-0.8); MONOCYTES % (AUTO) 6.1 % (0.0-13.0); NEUTROPHILS # (AUTO) 6.2 x10^3/uL (2.2-4.8); NEUTROPHILS % (AUTO) 66.9 % (42.0-75.0); PLATELET COUNT 273 X10^3/uL (150.0-450.0); RED CELL DISTRIBUTION WIDTH 15.4 % (11.6-16.5); WHITE BLOOD COUNT 9.3 X10^3/uL (3.6-10.0)
[2018-01-15 12:42] LABS: ALANINE AMINOTRANSFERASE 18 Units/L (12-78); ALBUMIN 3.8 g/dL (3.4-5.0); ALKALINE PHOSPHATASE 39 Units/L (46-116); ASPARTATE AMINO TRANSFERASE 14 Units/L (15-37); BLOOD UREA NITROGEN 7 mg/dL (7-18); CALCIUM 8.2 mg/dL (8.5-10.1); CARBON DIOXIDE 28.4 mmol/L (21-32); CHLORIDE 99 mmol/L (98-107); COR NA(FOR HYPERGLY) 137 mmol/L (136-145); CREATININE 0.86 mg/dL (0.70-1.30); SODIUM 135 mmol/L (136-145); TOTAL PROTEIN 7.9 g/dL (6.4-8.2); eGFR BLACK RACES > 60 (>60); eGFR NON BLACK RACES > 60 (>60)
[2018-01-15 12:45] LABS: CREATINE KINASE 63 Units/L (39-308); CREATINE KINASE MB < 1.0 ng/mL (0-4.0); TROPONIN I < 0.02 ng/mL (0-1.5)
[2018-01-15 12:47] LABS: CKMB % 1.6 % (<4)
[2018-01-15] MEDS: NS 1000 ML 1,000 ML IV SCH ×2 (15:38→20:56)
[2018-01-15] MEDS: MORPHINE SULFATE INJ 2 MG INJ IVP PRN ×2 (16:48→20:55)
[2018-01-15 18:15] LABS: CREATINE KINASE 66 Units/L (39-308); CREATINE KINASE MB < 1.0 ng/mL (0-4.0); TROPONIN I < 0.02 ng/mL (0-1.5)
[2018-01-15 18:36] LABS: CKMB % 1.5 % (<4)
[2018-01-15] MEDS ORDERED: AMBIEN PO PRN (23:14)
[2018-01-15 23:55] LABS: CKMB % 0.9 % (<4); CREATINE KINASE 109 Units/L (39-308); CREATINE KINASE MB < 1.0 ng/mL (0-4.0); TROPONIN I < 0.02 ng/mL (0-1.5)
[2018-01-16 06:03] LABS: BASOPHILS % (AUTO) 0.5 % (0.2-1.0); EOSINOPHILS # (AUTO) 0.3 x10^3/uL (0.0-0.2); EOSINOPHILS % (AUTO) 3.2 % (0.9-2.9); HEMATOCRIT 42.9 % (42.0-54.0); HEMOGLOBIN 14.6 g/dL (13.5-18.0); LYMPHOCYTES # (AUTO) 1.9 X10^3/uL (1.3-2.9); LYMPHOCYTES % (AUTO) 21.5 % (21.0-51.0); MEAN CORPUSCULAR HEMOGLOBIN 27.8 pg (27.0-34.0); MEAN CORPUSCULAR HGB CONC 33.9 g/dL (33.0-35.0); MEAN PLATELET VOLUME 7.4 fL (7.4-11.0); MONOCYTES # (AUTO) 0.7 x10^3/uL (0.3-0.8); MONOCYTES % (AUTO) 7.9 % (0.0-13.0); NEUTROPHILS % (AUTO) 66.9 % (42.0-75.0); PLATELET COUNT 239 X10^3/uL (150.0-450.0); RED BLOOD COUNT 5.23 X10^6/uL (4.7-6.0); RED CELL DISTRIBUTION WIDTH 15.4 % (11.6-16.5)
[2018-01-16 06:13] LABS: ALANINE AMINOTRANSFERASE 16 Units/L (12-78); ALBUMIN 3.4 g/dL (3.4-5.0); ALKALINE PHOSPHATASE 34 Units/L (46-116); ASPARTATE AMINO TRANSFERASE 10 Units/L (15-37); BLOOD UREA NITROGEN 8 mg/dL (7-18); CARBON DIOXIDE 26.3 mmol/L (21-32); CHLORIDE 100 mmol/L (98-107); CHOL/HDL RATIO 7.5 (0.0-5.0); CHOLESTEROL 202 mg/dL (0-200); COR NA(FOR HYPERGLY) 136 mmol/L (136-145); CREATININE 0.87 mg/dL (0.70-1.30); HDL CHOLESTEROL 27 mg/dL (40-60); SODIUM 135 mmol/L (136-145); TOTAL PROTEIN 7.5 g/dL (6.4-8.2); TRIGLYCERIDES 144 mg/dL (0-150); eGFR BLACK RACES > 60 (>60); eGFR NON BLACK RACES > 60 (>60)
[2018-01-16] MEDS: NS 1000 ML 1,000 ML IV SCH ×2 (06:13→13:15)
--- NOTE | 2018-01-16 06:53 | RAD ---
HISTORY: Chest pain, diabetes, hypertension, bladder cancer Study: AP portable chest Comparison: 01/15/2018 Findings: The trachea is midline . The mediastinum appears widened measuring 12 cm transversely. This may be se condary to semi upright position of the patient. Two view chest film in the Radiology department is r ecommended with the patient's clinically stable.. The heart is moderately enlarged. The costophrenic angles are sharp and both diaphragms are adequately maintained. The lungs are adequately aerated. Oss eous structures are within normal limits for the patient's age There is no evidence of active inflamm atory disease. IMPRESSION: 1. The heart is moderately enlarged. Widened mediastinum may be secondary to partially recumbent posi tion of the patient. Repeat two view chest film in the Radiology department is recommended when the p atient is clinically stable. lungs clear Reported By:
[2018-01-16] MEDS: MORPHINE SULFATE INJ 2 MG INJ IVP PRN (07:26)
[2018-01-16] MEDS: ASPIRIN PO SCH (08:46)
[2018-01-16] MEDS ORDERED: HumuLIN R SUBCUT PRN (09:48)
[2018-01-16] MEDS ORDERED: ZOLOFT PO SCH (10:00)
[2018-01-16] MEDS ORDERED: NEURONTIN TAB 600 MG PO SCH (10:00)
[2018-01-16] MEDS ORDERED: ZESTRIL TAB 40 MG PO SCH (10:00)
[2018-01-16] MEDS ORDERED: TOPROL XL PO ONE (12:56)
[2018-01-16] MEDS ORDERED: TOPROL XL PO SCH (13:00)
[2018-01-16 13:14] VITALS: BP 182/90
[2018-01-16] MEDS ORDERED: SNACK - Diabetic Appropriate PO SCH (20:00)
[2018-01-16] MEDS ORDERED: NORVASC TAB 10 MG PO SCH (21:00)
== END 2018-01-16 13:00 | disposition home or self-care (01) ==
LOC: ER 10:36 → MED/SURG 14:23
PROVIDERS: ADMIT Internal Medicine; ATTEND Internal Medicine
DX: R07.89 Other chest pain (principal); I10 Essential (primary) hypertension; E11.65 Type 2 diabetes mellitus with hyperglycemia; E78.2 Mixed hyperlipidemia; M25.512 Pain in left shoulder; R94.31 Abnormal electrocardiogram [ECG] [EKG]
CPT/HCPCS: 36415; 71045; 80053; 80061; 82550; 82553; 83735; 84484; 85025; 85610; 85730; 93005; 94760; 96365; 96374; 99217; 99218; 99284; A4216; A4222; G0378; J2270

== ENCOUNTER 2018-10-10 12:20 | Observation (INO) ==
[2018-10-10] MEDS ORDERED: NS 1000 ML 1,000 ML ONE (13:51)
[2018-10-10] MEDS: NS 1000 ML 1,000 ML IV SCH (13:52)
[2018-10-10 14:15] LABS: BASOPHILS # (AUTO) 0.1 X10^3/uL (0.0-0.1); BASOPHILS % (AUTO) 0.8 % (0.2-1.0); EOSINOPHILS # (AUTO) 0.2 x10^3/uL (0.0-0.2); EOSINOPHILS % (AUTO) 2.4 % (0.9-2.9); HEMATOCRIT 42.5 % (42.0-54.0); HEMOGLOBIN 14.2 g/dL (13.5-18.0); LYMPHOCYTES # (AUTO) 1.6 X10^3/uL (1.3-2.9); LYMPHOCYTES % (AUTO) 23.6 % (21.0-51.0); MEAN CORPUSCULAR HEMOGLOBIN 27.7 pg (27.0-34.0); MEAN CORPUSCULAR HGB CONC 33.4 g/dL (33.0-35.0); MEAN CORPUSCULAR VOLUME 83.1 fL (80.0-100.0); MEAN PLATELET VOLUME 6.6 fL (7.4-11.0); MONOCYTES # (AUTO) 0.4 x10^3/uL (0.3-0.8); MONOCYTES % (AUTO) 6.5 % (0.0-13.0); NEUTROPHILS # (AUTO) 4.6 x10^3/uL (2.2-4.8); NEUTROPHILS % (AUTO) 66.7 % (42.0-75.0); PLATELET COUNT 311 X10^3/uL (150.0-450.0); RED BLOOD COUNT 5.11 X10^6/uL (4.7-6.0); RED CELL DISTRIBUTION WIDTH 15.8 % (11.6-16.5); WHITE BLOOD COUNT 6.8 X10^3/uL (3.6-10.0)
[2018-10-10 14:34] LABS: B-TYPE NATRIURETIC PEPTIDE 147 pg/mL (0-79)
[2018-10-10] MEDS: ZOFRAN INJ 4 MG VIAL IVP PRN ×2 (14:41→20:16)
--- NOTE | 2018-10-10 14:53 | RAD ---
History: Shortness of breath Study: AP chest Comparison: July 17 2018 Findings: There is unchanged cardiomegaly. The lungs are clear. There is no edema or effusion. Impression: No evidence for acute Reported By:
[2018-10-10 14:57] LABS: ALANINE AMINOTRANSFERASE 26 Units/L (12-78); ALBUMIN 3.4 g/dL (3.4-5.0); ALKALINE PHOSPHATASE 38 Units/L (46-116); AMYLASE 27 Units/L (25-115); ASPARTATE AMINO TRANSFERASE 15 Units/L (15-37); BLOOD UREA NITROGEN 10 mg/dL (7-18); CALCIUM 8.8 mg/dL (8.5-10.1); CARBON DIOXIDE 27.8 mmol/L (21-32); CHLORIDE 101 mmol/L (98-107); COR NA(FOR HYPERGLY) 138 mmol/L (136-145); CREATININE 0.84 mg/dL (0.70-1.30); LIPASE 100 Units/L (73-393); SODIUM 137 mmol/L (136-145); TOTAL PROTEIN 7.8 g/dL (6.4-8.2); eGFR NON BLACK RACES > 60 (>60)
[2018-10-10] MEDS: PERCOCET TAB 5/325 MG PO PRN (16:16)
[2018-10-10] MEDS ORDERED: PERCOCET TAB 5/325 MG PO SCH (17:00)
--- NOTE | 2018-10-10 19:28 | DR.UPDATE ---
H&P Update History and Physical Update: WAS SEEN IN THE OFFICE TODAY FOR PERSISTENT NAUSEA, WEAKNESS, AND POOR APPETITE. HE WAS ADMITTED FOR FURTHER EVALUATION AND TREATMENT. A H&P WAS COMPLETED PRIOR TO ADMISSION. ON ADMISSION, LABS WERE OBTAINED. ABNORMAL LAB VALUES INCLUDE THE FOLLOWING: GLUCOSE 161, ALK PHOS 38, BNP 147. INFLUENZA NEGATIVE. A CHEST XRAY WAS OBTAINED AND REVEALED NO ACUTE CARDIOPULMONARY DISEASE. AN ABDOMEN/PELVIS CT WITH CONTRAST WAS ORDERED. PATIENT DRANK ORAL CONTRAST, THEN REFUSED TO HAVE CT DONE. WE WILL OBTAIN AN ABDOMINAL SERIES IN THE MORNING AFTER HE HAS HAD TIME TO CLEAR THE CONTRAST. WE WILL ALSO OBTAIN A URINALYSIS. HE WILL BE STARTED ON NORMAL SALINE AT 50ML/HR, AND WE WILL RESUME HOME MEDICATIONS. WE PLAN TO CONSULT . OTHERWISE, WE WILL FOLLOW UP WITH AM LABS AND CONTINUE TO MONITOR. Changes noted: NO Yes with the following:
[2018-10-10] MEDS: NEURONTIN TAB 600 MG PO SCH (20:12)
[2018-10-10] MEDS: AMARYL TAB 4 MG PO SCH (20:12)
[2018-10-10] MEDS: XANAX PO SCH (20:12)
[2018-10-10] MEDS: NORVASC TAB 10 MG PO SCH (20:13)
[2018-10-10] MEDS: SOMA TAB 350 MG PO SCH (20:13)
[2018-10-10] MEDS: COLACE CAP 100 MG PO PRN (20:13)
[2018-10-10] MEDS: SNACK - Diabetic Appropriate PO SCH (20:14)
[2018-10-11] MEDS: NS 1000 ML 1,000 ML IV SCH ×3 (04:58→20:32)
[2018-10-11 05:14] LABS: BILIRUBIN,URINE NEGATIVE (NEGATIVE); BLOOD/HEMOGLOBIN,URINE 1+ (NEGATIVE); GLUCOSE, URINE NEGATIVE (NEGATIVE); KETONES,URINE 1+ (NEGATIVE); LEUKOCYTE ESTERASE ,URINE NEGATIVE (NEGATIVE); NITRITES,URINE NEGATIVE (NEGATIVE); PROTEIN,URINE 2+ (NEGATIVE); UROBILINOGEN,URINE 1+ (NORMAL)
[2018-10-11 05:17] LABS: BASOPHILS % (AUTO) 0.7 % (0.2-1.0); EOSINOPHILS # (AUTO) 0.2 x10^3/uL (0.0-0.2); LYMPHOCYTES # (AUTO) 1.5 X10^3/uL (1.3-2.9); LYMPHOCYTES % (AUTO) 22.5 % (21.0-51.0); MEAN CORPUSCULAR HEMOGLOBIN 27.7 pg (27.0-34.0); MEAN CORPUSCULAR HGB CONC 32.4 g/dL (33.0-35.0); MEAN CORPUSCULAR VOLUME 85.6 fL (80.0-100.0); MEAN PLATELET VOLUME 6.8 fL (7.4-11.0); MONOCYTES # (AUTO) 0.4 x10^3/uL (0.3-0.8); MONOCYTES % (AUTO) 6.8 % (0.0-13.0); NEUTROPHILS # (AUTO) 4.4 x10^3/uL (2.2-4.8); PLATELET COUNT 285 X10^3/uL (150.0-450.0); RED BLOOD COUNT 4.68 X10^6/uL (4.7-6.0); RED CELL DISTRIBUTION WIDTH 15.5 % (11.6-16.5); WHITE BLOOD COUNT 6.5 X10^3/uL (3.6-10.0)
[2018-10-11 05:20] LABS: APPEARANCE,URINE CLEAR (CLEAR); BACTERIA,URINE NEGATIVE /HPF (NEGATIVE); COLOR,URINE DARK YELLOW (YELLOW); SQUAMOUS EPITHELIAL CELL,UR FEW /HPF (NEGATIVE)
[2018-10-11 05:41] LABS: ALANINE AMINOTRANSFERASE 25 Units/L (12-78); ALBUMIN 3.2 g/dL (3.4-5.0); ALKALINE PHOSPHATASE 35 Units/L (46-116); AMYLASE 24 Units/L (25-115); ASPARTATE AMINO TRANSFERASE 12 Units/L (15-37); BLOOD UREA NITROGEN 10 mg/dL (7-18); CALCIUM 8.4 mg/dL (8.5-10.1); CHLORIDE 101 mmol/L (98-107); COR NA(FOR HYPERGLY) 138 mmol/L (136-145); CREATININE 0.87 mg/dL (0.70-1.30); LIPASE 104 Units/L (73-393); SODIUM 137 mmol/L (136-145); TOTAL PROTEIN 7.3 g/dL (6.4-8.2); eGFR NON BLACK RACES > 60 (>60)
[2018-10-11 06:36] VITALS: BMI 54.3
--- NOTE | 2018-10-11 06:50 | RAD ---
HISTORY: Nausea, vomiting, shortness of breath Study: Flat and upright abdomen, PA chest Comparison: 10/10/2018 Findings: The abdominal gas pattern is nonspecific and nonobstructive. No pneumoperitoneum is identified. No abnormal masses or abnormal calcifications are identified. The lung love are clear. IMPRESSION: Unremarkable obstruction series Reported By:
[2018-10-11] MEDS ORDERED: GLUCOPHAGE ONE (08:22)
[2018-10-11] MEDS: ZESTRIL TAB 40 MG PO SCH (08:45)
[2018-10-11] MEDS: AMARYL TAB 4 MG PO SCH ×2 (08:45→20:28)
[2018-10-11] MEDS: LASIX PO SCH (08:46)
[2018-10-11] MEDS: NORVASC TAB 10 MG PO SCH ×2 (08:46→20:30)
[2018-10-11] MEDS: GLUCOPHAGE PO SCH (08:46)
[2018-10-11] MEDS: NEURONTIN TAB 600 MG PO SCH ×2 (08:47→20:28)
[2018-10-11] MEDS: TOPROL XL PO SCH (08:47)
[2018-10-11] MEDS: ZOFRAN INJ 4 MG VIAL IVP PRN (08:47)
[2018-10-11] MEDS: ZOLOFT PO SCH (08:47)
[2018-10-11] MEDS: PERCOCET TAB 5/325 MG PO PRN ×2 (08:49→16:19)
[2018-10-11] MEDS ORDERED: PROTONIX TAB 40 MG PO SCH (09:00)
[2018-10-11] MEDS: LEVSIN/MAALOX/LIDOC VISC PO SCH ×4 (11:07→20:29)
[2018-10-11] MEDS: PROTONIX INJ 40 MG VIAL IVP SCH ×2 (11:15→20:29)
[2018-10-11] MEDS: PEPCID 20 MG IV PREMIX* 20 MG/50 ML BAG IV SCH ×2 (11:15→20:28)
--- NOTE | 2018-10-11 13:37 | US ---
History: Right upper quadrant pain Study: Ultrasound of the right upper quadrant of the abdomen Findings: The gallbladder is normal in size without wall thickening or stone or sludge. The common hepatic duct measures 7.8 mm diameter. There is fatty infiltration of the liver. The right lobe measures 23 cm sagittal maximum length. No focal liver mass is demonstrated. The right kidney measures 14 x 6 x 7 cm with cortical thickness of 1.6 cm. There is no hydronephrosis or renal mass. The IVC and pancreas are obscured. It is demonstrated. Impression: Enlarged fatty liver, otherwise unremarkable Reported By:
--- NOTE | 2018-10-11 14:54 | DR.CONSULT ---
Consult - Consultation for Day of: Date: 10/10/18 - Chief Complaint Chief Complaint: Patient referred for abdominal pain, nausea and vomiting. Patient with complaints of dysphagia, dyspepsia, nausea, vomiting and abdominal distention. - History of Present Illness History of Present Illness: Patient is a 57 yo male who was referred for abdominal pain, nausea and vomiting since august last vomiting this am. Patient with complaints of dysphagia, dyspepsia, nausea, vomiting and abdominal distention. Hgb 14.2, Hct 42.5, BUN10, Creatinine 0.8, T. Bili 0.8, AST 15, ALT 26, ALk Phos 38, AMylase 27, Lipase 100. Patient denies abdominal pain, c onstipation, diarrhea, melena and hematochezia. States is he had a colonoscopy [address] arellano in [place], had never had an EGD. - Past Medical History Past Medical History: Hypertension, Dyslipidemia, Diabetes, Anxiety, Kidney Stones, Sleep Apnea Additional Medical History: history of bladder cancer - Past Surgical History Surgical History: Ortho Surgery, Lithotripsy - Family History Family Medical History: Hypertension - Social History Does patient currently use any type of tobacco product: No Have you used tobacco products in the last 12 months: No Type of Tobacco Use: None Alcohol Use: None (History of heavy alcohol use 12pk a day quit 10 years ago) Drug Use: None - Medications Home Medications: No Known Drug Allergies Allergy (Verified 07/17/18 10:30) CONTINUE taking the following medications amlodipine 10 mg PO BID 10/10/18 [History] docusate sodium 2 cap PO HS PRN 10/10/18 [History] glimepiride 2 mg PO BID 10/10/18 [History] lisinopril 40 mg PO DAILY 10/10/18 [History] metformin 500 mg PO DAILY 10/10/18 [History] metoprolol succinate 25 mg PO DAILY 10/10/18 [History] sertraline 25 mg PO DAILY 10/10/18 [History] - Review of Systems Constitutional: No Symptoms Reported Eyes: No Symptoms Reported ENT: No Symptoms Reported Respiratory: No Symptoms Reported Cardiovascular: No Symptoms Reported Gastrointestinal: See HPI, Nausea, Vomiting, Other (dyphagia, dyspepsia, abdominal distention). denies: Abdominal Pain, Diarrhea, Constipation, Melena, Hematochezia Musculoskeletal: No Symptoms Reported Skin: No Symptoms Reported Neurological: No Symptoms Reported - Physical Exam Vital Signs: Temperature 98.5 F Pulse Rate [Right Brachial] 81 Respiratory Rate 18 Blood Pressure [Right Arm] 92/51 Blood Pressure [Left Arm] 128/58 Blood Pressure 134/58 O2 Sat by Pulse Oximetry 91 Oriented: Normal Eyes: Normal Ear: Normal Nose: Normal Throat: Normal Respiratory: Clear Throughout Cardiovascular: Normal Auscultation: Bowel Sounds: Normal Palpation: Normal, Other (distention noted). negative: Spleen Enlarged, Liver Enlarged, Mass Pulsatile Tenderness: Normal (no tenderness) Skin: Normal Musculoskeletal: Normal Psychiatric: Normal Mood Description: Calm Affect: Normal Speech Pattern: Clear, Appropriate - Plan Plan: Assessment. 1. Dysphagia r/o esophageal stricture. 2. Dyspepsia, Nausea, Vomiting r/o gastric ulcer, gastric adenocarcinoma. Plan. 1. EGD in am. 2. Protonix IV, Zofran PRN. Plan reviewed with Dr. Thakkar - Allergies Allergies/Adverse Reactions: Allergies Allergy/AdvReac Type Severity Reaction Status Date / Time No Known Drug Allergies Allergy Verified 07/17/18 10:30
[2018-10-11] MEDS: SOMA TAB 350 MG PO SCH (20:30)
[2018-10-11] MEDS: XANAX PO SCH (20:30)
[2018-10-11] MEDS: COLACE CAP 100 MG PO PRN (20:31)
[2018-10-11] MEDS: SNACK - Diabetic Appropriate PO SCH (22:21)
[2018-10-12 05:31] LABS: BASOPHILS % (AUTO) 0.4 % (0.2-1.0); EOSINOPHILS # (AUTO) 0.2 x10^3/uL (0.0-0.2); EOSINOPHILS % (AUTO) 2.8 % (0.9-2.9); HEMATOCRIT 39.2 % (42.0-54.0); LYMPHOCYTES % (AUTO) 25.5 % (21.0-51.0); MEAN CORPUSCULAR HGB CONC 33.1 g/dL (33.0-35.0); MEAN CORPUSCULAR VOLUME 84.6 fL (80.0-100.0); MEAN PLATELET VOLUME 6.8 fL (7.4-11.0); MONOCYTES # (AUTO) 0.6 x10^3/uL (0.3-0.8); MONOCYTES % (AUTO) 7.2 % (0.0-13.0); NEUTROPHILS # (AUTO) 4.9 x10^3/uL (2.2-4.8); NEUTROPHILS % (AUTO) 64.1 % (42.0-75.0); PLATELET COUNT 287 X10^3/uL (150.0-450.0); RED BLOOD COUNT 4.64 X10^6/uL (4.7-6.0); RED CELL DISTRIBUTION WIDTH 15.9 % (11.6-16.5); WHITE BLOOD COUNT 7.7 X10^3/uL (3.6-10.0)
[2018-10-12] MEDS: PERCOCET TAB 5/325 MG PO PRN ×2 (05:50→16:38)
[2018-10-12 05:52] LABS: ALANINE AMINOTRANSFERASE 24 Units/L (12-78); ALBUMIN 3.3 g/dL (3.4-5.0); ALKALINE PHOSPHATASE 39 Units/L (46-116); ASPARTATE AMINO TRANSFERASE 14 Units/L (15-37); BLOOD UREA NITROGEN 16 mg/dL (7-18); CALCIUM 8.5 mg/dL (8.5-10.1); CARBON DIOXIDE 31.1 mmol/L (21-32); CHLORIDE 100 mmol/L (98-107); COR CA(FOR HYPOALB) 9.1 mg/dL (8.5-10.1); COR NA(FOR HYPERGLY) 138 mmol/L (136-145); CREATININE 1.25 mg/dL (0.70-1.30); SODIUM 137 mmol/L (136-145); TOTAL PROTEIN 7.4 g/dL (6.4-8.2); eGFR NON BLACK RACES > 60 (>60)
[2018-10-12] MEDS: ZOLOFT PO SCH (08:10)
[2018-10-12] MEDS: AMARYL TAB 4 MG PO SCH ×2 (08:10→21:56)
[2018-10-12] MEDS: GLUCOPHAGE PO SCH (08:10)
[2018-10-12] MEDS: LEVSIN/MAALOX/LIDOC VISC PO SCH ×4 (08:10→21:59)
[2018-10-12] MEDS: LASIX PO SCH (08:11)
[2018-10-12] MEDS: ZESTRIL TAB 40 MG PO SCH ×2 (08:11→09:21)
[2018-10-12] MEDS: TOPROL XL PO SCH ×2 (08:11→09:22)
[2018-10-12] MEDS: NEURONTIN TAB 600 MG PO SCH ×2 (08:11→21:57)
[2018-10-12] MEDS: PEPCID 20 MG IV PREMIX* 20 MG/50 ML BAG IV SCH ×2 (08:11→21:57)
[2018-10-12] MEDS: PROTONIX INJ 40 MG VIAL IVP SCH ×2 (08:12→21:57)
[2018-10-12] MEDS: NORVASC TAB 10 MG PO SCH ×3 (08:12→21:56)
[2018-10-12] MEDS ORDERED: STERILE WATER IRRIGATION IR ONE (09:44)
[2018-10-12] MEDS ORDERED: DIPRIVAN VIAL 20 ML ONE (13:31)
--- NOTE | 2018-10-12 14:16 | PCM.PROG ---
Progress Note - Progress Note for Day of Date of Exam: 10/11/18 - Subjective Subjective: WAS ADMITTED FOR INTRACTABLE NAUSEA/VOMITING, GENERALIZED WEAKNESS, AND DECREASED APPETITE. HE REPORTS INCREASED NAUSEA AND VOMITING WELL INCREASED ABDOMINAL PAIN AFTER EATING. HE ALSO REPORTS EXCESSIVE FATIGUE THROUGHOUT THE DAY. HIS SPOUSE REPORTS THAT HE OFTEN STOPS BREATHING DURING THE NIGHT EVEN WHEN ON HIS BIPAP AND OXYGEN. HIS VITALS THIS MORNING ARE 98.2-81-18-94%-137/72. LABS WERE OBTAINED. ABNORMAL LAB VALUES INCLUDE THE FOLLOWING: RBC4.68, HGB 13.0, HCT 40.0, GLUCOSE 153, CALCIUM 8.4, AST 12, ALK PHOS 35, CRP 16.70, ALBUMIN 3.2, AMYLASE 24. AN ABDOMINAL SERIES WAS OBTAINED AND REVEALED: Unremarkable obstruction series. TODAY, WE WILL OBTAIN A GALLBLADDER US, AN OVERNIGHT PULSE OX, ECHO, ESR, AND CRP. WE WILL START GI COCKTAIL, PEPCID, AND PROTONIX IV. OTHERWISE, WE WILL CONTINUE WITH IV HYDRATION AND CURRENT PLAN OF CARE. WE PLAN TO FOLLOW UP WITH AM LABS AND CONTINUE TO MONITOR. - Past Medical Family Social History Past Med/Fam/Surg Hx: No changes since H&P Allergies: Allergies No Known Drug Allergies Allergy (Verified 07/17/18 10:30) - Review of Systems ROS: No change since H&P - Vital Signs and I&O's Vital Signs: Temperature 99.0 F Pulse Rate [Right Brachial] 58 Respiratory Rate 18 Blood Pressure [Right Arm] 145/80 Blood Pressure [Left Arm] 127/59 Blood Pressure 134/58 O2 Sat by Pulse Oximetry 92 Intake and Output: Intake & Output 10/10/18 10/11/18 10/12/18 10/13/18 11:59 11:59 11:59 11:59 Intake Total 610 / 610 1420 / 1420 100 / 100 Balance 610 / 610 1420 / 1420 100 / 100 - Physical Exam Oriented: Normal Eyes: Normal Ear: Normal Nose: Normal Throat: Normal Respiratory: Generalized, Diminished Cardiovascular: Normal Auscultation: Bowel Sounds: Normal Palpation: Normal Tenderness: Normal (no tenderness) Skin: Normal Musculoskeletal: Normal Psychiatric: Normal Mood Description: Calm Affect: Normal Speech Pattern: Clear, Appropriate - Laboratory and Diagnostics Result Diagrams: 10/12/18 04:17 10/12/18 04:17 Labs: Laboratory WBC 7.7 X10^3/uL (3.6-10.0) 10/12/18 04:17 RBC 4.64 X10^6/uL (4.7-6.0) L 10/12/18 04:17 Hgb 13.0 g/dL (13.5-18.0) L 10/12/18 04:17 Hct 39.2 % (42.0-54.0) L 10/12/18 04:17 MCV 84.6 fL (80.0-100.0) 10/12/18 04:17 MCH 28.0 pg (27.0-34.0) 10/12/18 04:17 MCHC 33.1 g/dL (33.0-35.0) 10/12/18 04:17 RDW 15.9 % (11.6-16.5) 10/12/18 04:17 Plt Count 287 X10^3/uL (150.0-450.0) 10/12/18 04:17 MPV 6.8 fL (7.4-11.0) L 10/12/18 04:17 Neut % (Auto) 64.1 % (42.0-75.0) 10/12/18 04:17 Lymph % (Auto) 25.5 % (21.0-51.0) 10/12/18 04:17 [place] % (Auto) 7.2 % (0.0-13.0) 10/12/18 04:17 Eos % (Auto) 2.8 % (0.9-2.9) 10/12/18 04:17 Baso % (Auto) 0.4 % (0.2-1.0) 10/12/18 04:17 Neut # (Auto) 4.9 x10^3/uL (2.2-4.8) H 10/12/18 04:17 Lymph # (Auto) 2.0 X10^3/uL (1.3-2.9) 10/12/18 04:17 [place] # (Auto) 0.6 x10^3/uL (0.3-0.8) 10/12/18 04:17 Eos # (Auto) 0.2 x10^3/uL (0.0-0.2) 10/12/18 04:17 Baso # (Auto) 0.0 X10^3/uL (0.0-0.1) 10/12/18 04:17 Absolute Nucleated RBC 0.1 /100WBC 10/12/18 04:17 ESR 17 MM/HOUR (0-15) H 10/11/18 04:04 Sodium 137 mmol/L (136-145) 10/12/18 04:17 Corrected Sodium 138 mmol/L (136-145) 10/12/18 04:17 Potassium 3.8 mmol/L (3.5-5.1) 10/12/18 04:17 Chloride 100 mmol/L (98-107) 10/12/18 04:17 Carbon Dioxide 31.1 mmol/L (21-32) 10/12/18 04:17 BUN 16 mg/dL (7-18) 10/12/18 04:17 Creatinine 1.25 mg/dL (0.70-1.30) 10/12/18 04:17 Est GFR (MDRD) Af Amer > 60 (>60) 10/12/18 04:17 Est GFR (MDRD) Non-Af > 60 (>60) 10/12/18 04:17 Glucose 146 mg/dL (65-99) H 10/12/18 04:17 POC Glucose (mg/dL) 103 mg/dL (65-99) H 10/12/18 12:03 Calcium 8.5 mg/dL (8.5-10.1) 10/12/18 04:17 Corrected Calcium 9.1 mg/dL (8.5-10.1) 10/12/18 04:17 Total Bilirubin 0.90 mg/dL (0.2-1.0) 10/12/18 04:17 AST 14 Units/L (15-37) L 10/12/18 04:17 ALT 24 Units/L (12-78) 10/12/18 04:17 Alkaline Phosphatase 39 Units/L (46-116) L 10/12/18 04:17 C-Reactive Protein 16.70 mg/L (0-3.0) H 10/11/18 04:04 B-Natriuretic Peptide 147 pg/mL (0-79) H 10/10/18 13:59 Total Protein 7.4 g/dL (6.4-8.2) 10/12/18 04:17 Albumin 3.3 g/dL (3.4-5.0) L 10/12/18 04:17 Globulin 4.1 g/dL (2.5-4.5) 10/12/18 04:17 Albumin/Globulin Ratio 0.8 Ratio (1.1-2.1) L 10/12/18 04:17 Amylase 24 Units/L (25-115) L 10/11/18 04:04 Lipase 104 Units/L (73-393) 10/11/18 04:04 Specimen Type Clean catch urine 10/11/18 04:25 Urine Color Dark yellow (YELLOW) 10/11/18 04:25 Urine Appearance Clear (CLEAR) 10/11/18 04:25 Urine pH 6.0 (5.0 - 8.0) 10/11/18 04:25 Ur Specific [place] 1.020 (1.000-1.030) 10/11/18 04:25 Urine Protein 2+ (NEGATIVE) 10/11/18 04:25 Urine Glucose (UA) Negative (NEGATIVE) 10/11/18 04:25 Urine Ketones 1+ (NEGATIVE) 10/11/18 04:25 Urine Occult Blood 1+ (NEGATIVE) 10/11/18 04:25 Urine Nitrite Negative (NEGATIVE) 10/11/18 04:25 Urine Bilirubin Negative (NEGATIVE) 10/11/18 04:25 Urine Urobilinogen 1+ (NORMAL) 10/11/18 04:25 Ur Leukocyte Esterase Negative (NEGATIVE) 10/11/18 04:25 Urine RBC 3-5 /HPF (NONE SEEN) 10/11/18 04:25 Urine WBC 0-2 /HPF (NONE SEEN) 10/11/18 04:25 Ur Squamous Epith Cells Few /HPF (NEGATIVE) 10/11/18 04:25 Urine Bacteria Negative /HPF (NEGATIVE) 10/11/18 04:25 Ur Culture Indicated? No/not indicated 10/11/18 04:25 Influenza Type A (PCR) Negative (NEGATIVE) 10/10/18 14:10 Influenza Type B (PCR) Negative (NEGATIVE) 10/10/18 14:10 - Plan (1) Intractable nausea and vomiting Status: Acute Qualifiers: Vomiting type: unspecified Qualified Code(s): R11.2 - Nausea with vomiting, unspecified Plan: OBTAIN GB US, PROTONIX 40MG IV BID, ZOFRAN 4MG IV Q4-6H PRN, CONTINUE TO MONITOR (2) Abdominal pain Status: Acute Qualifiers: Abdominal location: generalized Qualified Code(s): R10.84 - Generalized abdominal pain Plan: OBTAIN GALLBLADDER US, CONTINUE TO MONITOR (3) Generalized weakness Status: Acute (4) CHF (congestive heart failure) Status: Acute Qualifiers: Heart failure type: unspecified Heart failure chronicity: acute on chronic Qualified Code(s): I50.9 - Heart failure, unspecified Plan: OBTAIN ECHO, OVERNIGHT PULSE OX, CONTINUE TO MONITOR
[2018-10-12] MEDS: REGLAN INJ 10 MG VIAL IVP SCH ×3 (14:57→21:57)
--- NOTE | 2018-10-12 16:18 | PCM.PROG ---
Progress Note - Progress Note for Day of Date of Exam: 10/12/18 - Subjective Subjective: WAS ADMITTED FOR INTRACTABLE NAUSEA/VOMITING, GENERALIZED WEAKNESS, AND DECREASED APPETITE. HE CONTINUES WITH INCREASED NAUSEA AND VOMITING AFTER EATING. HE ALSO CONTINUES WITH WEAKNESS AND ABDOMINAL PAIN. HIS VITALS THIS MORNING ARE 98.4-64-20-90 BIPAP-127/59. LABS WERE OBTAINED. ABNORMAL LAB VALUES INCLUDE THE FOLLOWING: RBC 4.64, HGB 13.0, HCT 39.2, GLUCOSE 146, AST 14, ALK PHOS 39. A GALLBLADDER US WAS OBTAINED YESTERDAY AND REVEALED: Enlarged fatty liver, otherwise unremarkable. AN ECHO WAS OBTAINED AND REVEALED AN EJECTION FRACTION OF 39%. AN OVERNIGHT PULSE OX WAS OBTAINED DURING THE NIGHT WHILE PATIENT WAS ON THE BIPAP. HIS OXYGEN SATURATIONS WERE NOTED TO DROP INTO THE 70S WHILE ON THE BIPAP. RESPIRATORY THERAPY WILL MAKE ADJUSTMENTS TO HIS SETTINGS TODAY. CONSULTED WITH PATIENT AND PLANS FOR AN EGD TODAY. OTHERWISE, WE WILL CONTINUE WITH IV HYDRATION AND CURRENT PLAN OF CARE. WE PLAN TO FOLLOW UP WITH AM LABS AND CONTINUE TO MONITOR. - Past Medical Family Social History Past Med/Fam/Surg Hx: No changes since H&P Allergies: Allergies No Known Drug Allergies Allergy (Verified 07/17/18 10:30) - Review of Systems ROS: No change since H&P - Vital Signs and I&O's Vital Signs: Temperature 98.2 F Pulse Rate [Right Brachial] 68 Respiratory Rate 20 Blood Pressure [Right Arm] 112/55 Blood Pressure [Left Arm] 127/59 Blood Pressure 134/58 O2 Sat by Pulse Oximetry 92 Intake and Output: Intake & Output 10/10/18 10/11/18 10/12/18 10/13/18 11:59 11:59 11:59 11:59 Intake Total 610 / 610 1420 / 1420 100 / 100 Balance 610 / 610 1420 / 1420 100 / 100 - Physical Exam Oriented: Normal Eyes: Normal Ear: Normal Nose: Normal Throat: Normal Respiratory: Generalized, Diminished Cardiovascular: Normal : Normal Auscultation: Bowel Sounds: Normal Palpation: Normal Tenderness: Normal (no tenderness) Skin: Normal Musculoskeletal: Normal Psychiatric: Normal Mood Description: Calm Affect: Normal Speech Pattern: Clear, Appropriate - Laboratory and Diagnostics Result Diagrams: 10/12/18 04:17 10/12/18 04:17 Labs: Laboratory WBC 7.7 X10^3/uL (3.6-10.0) 10/12/18 04:17 RBC 4.64 X10^6/uL (4.7-6.0) L 10/12/18 04:17 Hgb 13.0 g/dL (13.5-18.0) L 10/12/18 04:17 Hct 39.2 % (42.0-54.0) L 10/12/18 04:17 MCV 84.6 fL (80.0-100.0) 10/12/18 04:17 MCH 28.0 pg (27.0-34.0) 10/12/18 04:17 MCHC 33.1 g/dL (33.0-35.0) 10/12/18 04:17 RDW 15.9 % (11.6-16.5) 10/12/18 04:17 Plt Count 287 X10^3/uL (150.0-450.0) 10/12/18 04:17 MPV 6.8 fL (7.4-11.0) L 10/12/18 04:17 Neut % (Auto) 64.1 % (42.0-75.0) 10/12/18 04:17 Lymph % (Auto) 25.5 % (21.0-51.0) 10/12/18 04:17 [place] % (Auto) 7.2 % (0.0-13.0) 10/12/18 04:17 Eos % (Auto) 2.8 % (0.9-2.9) 10/12/18 04:17 Baso % (Auto) 0.4 % (0.2-1.0) 10/12/18 04:17 Neut # (Auto) 4.9 x10^3/uL (2.2-4.8) H 10/12/18 04:17 Lymph # (Auto) 2.0 X10^3/uL (1.3-2.9) 10/12/18 04:17 [place] # (Auto) 0.6 x10^3/uL (0.3-0.8) 10/12/18 04:17 Eos # (Auto) 0.2 x10^3/uL (0.0-0.2) 10/12/18 04:17 Baso # (Auto) 0.0 X10^3/uL (0.0-0.1) 10/12/18 04:17 Absolute Nucleated RBC 0.1 /100WBC 10/12/18 04:17 ESR 17 MM/HOUR (0-15) H 10/11/18 04:04 Sodium 137 mmol/L (136-145) 10/12/18 04:17 Corrected Sodium 138 mmol/L (136-145) 10/12/18 04:17 Potassium 3.8 mmol/L (3.5-5.1) 10/12/18 04:17 Chloride 100 mmol/L (98-107) 10/12/18 04:17 Carbon Dioxide 31.1 mmol/L (21-32) 10/12/18 04:17 BUN 16 mg/dL (7-18) 10/12/18 04:17 Creatinine 1.25 mg/dL (0.70-1.30) 10/12/18 04:17 Est GFR (MDRD) Af Amer > 60 (>60) 10/12/18 04:17 Est GFR (MDRD) Non-Af > 60 (>60) 10/12/18 04:17 Glucose 146 mg/dL (65-99) H 10/12/18 04:17 POC Glucose (mg/dL) 103 mg/dL (65-99) H 10/12/18 12:03 Calcium 8.5 mg/dL (8.5-10.1) 10/12/18 04:17 Corrected Calcium 9.1 mg/dL (8.5-10.1) 10/12/18 04:17 Total Bilirubin 0.90 mg/dL (0.2-1.0) 10/12/18 04:17 AST 14 Units/L (15-37) L 10/12/18 04:17 ALT 24 Units/L (12-78) 10/12/18 04:17 Alkaline Phosphatase 39 Units/L (46-116) L 10/12/18 04:17 C-Reactive Protein 16.70 mg/L (0-3.0) H 10/11/18 04:04 B-Natriuretic Peptide 147 pg/mL (0-79) H 10/10/18 13:59 Total Protein 7.4 g/dL (6.4-8.2) 10/12/18 04:17 Albumin 3.3 g/dL (3.4-5.0) L 10/12/18 04:17 Globulin 4.1 g/dL (2.5-4.5) 10/12/18 04:17 Albumin/Globulin Ratio 0.8 Ratio (1.1-2.1) L 10/12/18 04:17 Amylase 24 Units/L (25-115) L 10/11/18 04:04 Lipase 104 Units/L (73-393) 10/11/18 04:04 Specimen Type Clean catch urine 10/11/18 04:25 Urine Color Dark yellow (YELLOW) 10/11/18 04:25 Urine Appearance Clear (CLEAR) 10/11/18 04:25 Urine pH 6.0 (5.0 - 8.0) 10/11/18 04:25 Ur Specific [place] 1.020 (1.000-1.030) 10/11/18 04:25 Urine Protein 2+ (NEGATIVE) 10/11/18 04:25 Urine Glucose (UA) Negative (NEGATIVE) 10/11/18 04:25 Urine Ketones 1+ (NEGATIVE) 10/11/18 04:25 Urine Occult Blood 1+ (NEGATIVE) 10/11/18 04:25 Urine Nitrite Negative (NEGATIVE) 10/11/18 04:25 Urine Bilirubin Negative (NEGATIVE) 10/11/18 04:25 Urine Urobilinogen 1+ (NORMAL) 10/11/18 04:25 Ur Leukocyte Esterase Negative (NEGATIVE) 10/11/18 04:25 Urine RBC 3-5 /HPF (NONE SEEN) 10/11/18 04:25 Urine WBC 0-2 /HPF (NONE SEEN) 10/11/18 04:25 Ur Squamous Epith Cells Few /HPF (NEGATIVE) 10/11/18 04:25 Urine Bacteria Negative /HPF (NEGATIVE) 10/11/18 04:25 Ur Culture Indicated? No/not indicated 10/11/18 04:25 Influenza Type A (PCR) Negative (NEGATIVE) 10/10/18 14:10 Influenza Type B (PCR) Negative (NEGATIVE) 10/10/18 14:10 Tissue Pathology To follow 10/12/18 14:01 - Plan (1) Intractable nausea and vomiting Status: Acute Qualifiers: Vomiting type: unspecified Qualified Code(s): R11.2 - Nausea with vomiting, unspecified Plan: EGD IN AM, PROTONIX 40MG IV BID, ZOFRAN 4MG IV Q4-6H PRN, CONTINUE TO MONITOR (2) Abdominal pain Status: Acute Qualifiers: Abdominal location: generalized Qualified Code(s): R10.84 - Generalized abdominal pain Plan: EGD TODAY, CONTINUE TO MONITOR (3) Generalized weakness Status: Acute (4) CHF (congestive heart failure) Status: Acute Qualifiers: Heart failure type: unspecified Heart failure chronicity: acute on chronic Qualified Code(s): I50.9 - Heart failure, unspecified Plan: CONTINUE HOME MEDS, CONTINUE TO MONITOR
[2018-10-12] MEDS ORDERED: COLACE CAP 100 MG PO SCH (21:00)
[2018-10-12] MEDS ORDERED: MILK OF MAGNESIA PO SCH (21:00)
[2018-10-12] MEDS: SNACK - Diabetic Appropriate PO SCH (21:54)
[2018-10-12] MEDS: XANAX PO SCH (21:56)
[2018-10-12] MEDS: SOMA TAB 350 MG PO SCH (21:57)
[2018-10-13 05:28] LABS: BASOPHILS % (AUTO) 0.5 % (0.2-1.0); EOSINOPHILS # (AUTO) 0.3 x10^3/uL (0.0-0.2); EOSINOPHILS % (AUTO) 4.2 % (0.9-2.9); HEMOGLOBIN 12.6 g/dL (13.5-18.0); LYMPHOCYTES # (AUTO) 2.3 X10^3/uL (1.3-2.9); MEAN CORPUSCULAR HEMOGLOBIN 28.1 pg (27.0-34.0); MEAN CORPUSCULAR HGB CONC 33.1 g/dL (33.0-35.0); MEAN CORPUSCULAR VOLUME 84.9 fL (80.0-100.0); MEAN PLATELET VOLUME 6.9 fL (7.4-11.0); MONOCYTES # (AUTO) 0.6 x10^3/uL (0.3-0.8); MONOCYTES % (AUTO) 8.6 % (0.0-13.0); NEUTROPHILS # (AUTO) 3.5 x10^3/uL (2.2-4.8); NEUTROPHILS % (AUTO) 51.7 % (42.0-75.0); PLATELET COUNT 249 X10^3/uL (150.0-450.0); RED BLOOD COUNT 4.47 X10^6/uL (4.7-6.0); RED CELL DISTRIBUTION WIDTH 15.9 % (11.6-16.5); WHITE BLOOD COUNT 6.7 X10^3/uL (3.6-10.0)
[2018-10-13 05:56] LABS: ALANINE AMINOTRANSFERASE 20 Units/L (12-78); ALKALINE PHOSPHATASE 40 Units/L (46-116); ASPARTATE AMINO TRANSFERASE 11 Units/L (15-37); BLOOD UREA NITROGEN 15 mg/dL (7-18); CALCIUM 8.2 mg/dL (8.5-10.1); CARBON DIOXIDE 32.6 mmol/L (21-32); CHLORIDE 101 mmol/L (98-107); COR NA(FOR HYPERGLY) 139 mmol/L (136-145); CREATININE 0.95 mg/dL (0.70-1.30); SODIUM 139 mmol/L (136-145); TOTAL PROTEIN 6.9 g/dL (6.4-8.2); eGFR NON BLACK RACES > 60 (>60)
[2018-10-13] MEDS ORDERED: POTASSIUM CHLORIDE LIQ 20 MEQ UDC PO PRN (06:37)
[2018-10-13] MEDS ORDERED: MAGNESIUM SULFATE 1 GRAM/100 mL PREMIX 1 GM/100 ML BAG IV PRN (06:37)
[2018-10-13] MEDS ORDERED: KLOR-CON PO PRN (06:37)
[2018-10-13] MEDS ORDERED: MICRO K EXTEN CAP 10 MEQ PO PRN (06:37)
[2018-10-13] MEDS ORDERED: POTASSIUM CHL 40 MEQ/NS 0.45% 500 ML IV PRN (06:37)
[2018-10-13] MEDS ORDERED: POTASSIUM CHL 60 MEQ/NS 0.45% 500 ML IV PRN (06:37)
[2018-10-13] MEDS ORDERED: K-RIDER 10 MEQ/NS 100 ML 10 MEQ/100 ML BAG IV PRN (06:37)
[2018-10-13] MEDS ORDERED: K-DUR TAB 20 MEQ PO PRN (06:37)
[2018-10-13] MEDS ORDERED: GLUCOPHAGE ONE (07:46)
[2018-10-13] MEDS: PEPCID 20 MG IV PREMIX* 20 MG/50 ML BAG IV SCH (08:00)
[2018-10-13] MEDS: PROTONIX INJ 40 MG VIAL IVP SCH (08:00)
[2018-10-13] MEDS: PERCOCET TAB 5/325 MG PO PRN (08:00)
[2018-10-13] MEDS: REGLAN INJ 10 MG VIAL IVP SCH (08:00)
[2018-10-13] MEDS: NEURONTIN TAB 600 MG PO SCH (08:01)
[2018-10-13] MEDS: LEVSIN/MAALOX/LIDOC VISC PO SCH (08:01)
[2018-10-13] MEDS: TOPROL XL PO SCH (08:02)
[2018-10-13] MEDS: LASIX PO SCH (08:02)
[2018-10-13] MEDS: ZESTRIL TAB 40 MG PO SCH (08:02)
[2018-10-13] MEDS: ZOLOFT PO SCH (08:02)
[2018-10-13] MEDS: AMARYL TAB 4 MG PO SCH (08:02)
[2018-10-13] MEDS: NORVASC TAB 10 MG PO SCH (08:02)
[2018-10-13] MEDS: GLUCOPHAGE PO SCH (08:05)
[2018-10-13 09:19] VITALS: BP 150/93
== END 2018-10-13 11:14 | disposition home or self-care (01) ==
LOC: MED/SURG
PROVIDERS: ADMIT Internal Medicine; ATTEND Internal Medicine
DX: B95.7 Other staphylococcus as the cause of diseases classified elsewhere; B95.2 Enterococcus as the cause of diseases classified elsewhere; Z79.4 Long term (current) use of insulin; E11.69 Type 2 diabetes mellitus with other specified complication; M86.172 Other acute osteomyelitis, left ankle and foot
CPT/HCPCS: 36415; 71010; 71045; 74022; 76705; 80053; 81001; 82150; 83690; 83735; 83880; 85025; 85652; 86140; 87502; 88305; 88341; 93306; 94760; 96367; 96374; A4217; A4222; C9113; S0028; G0378; J2405; J2704; J2765; J7030